=== PATIENT | male | born 1990 | race Caucasian/White ===

== ENCOUNTER 2016-06-22 20:18 | Observation (INO) | payer SELFPAY ==
--- NOTE | ~2016-06-22 | CT2 ---
[facility] A Service of [facility] [place] RADIOLOGY TEXT RESULTS PATIENT: GEORGE RASHID JR LOCATION: [facility] 46- : [birth year] UNIT #: [id number] AGE: [address]: Karan Srivastava MD SEX: M ORDER DR: [id number] [place] [id number] [facility]. [place], [place] [address] [id number] MR#: [id number] Acc #: [id number] NAME: GEORGE RASHID JR : 1990 SEX: M STUDY DATE/TIME: 06/22/2016 20:58 UNIT: [facility] ROOM: [facility] STUDY DESCRIPTION: CT Abd and Pelv W Cont Attending Physician: Karan Srivastava M.D. Ordering Physician: Laura Plummer M.D. Primary Care Physician: Erik Mascorro M.D. MEDICAL IMAGING REPORT This report is preliminary unless electronic signature is present EXAM CT abdomen and pelvis with contrast, 06/22/2016. HISTORY Elevated white blood cell count, left flank pain for 2 weeks, history of kidney stones. COMPARISON 04/12/2009 TECHNIQUE Patient was given 100 mL of Isovue 370. Axial 5-mm images were obtained through the abdomen and pelvis. This CT exam was performed with one or more of the following radiation dose reduction techniques: automatic exposure control, adjustment of mA and/or kV according to patient size, and iterative reconstruction. FINDINGS Lung bases are clear. The liver, gallbladder, spleen, pancreas, adrenal glands, and right kidney are normal. The left kidney is abnormal, showing slight diffuse swelling and minimal perinephric edema. This appears to be due to hydronephrosis from a proximal ureteral stone, measuring 4.5 mm in diameter. The aorta is normal in size, and there is no adenopathy. The bowel is normal. The bladder and prostate gland are normal. The bones are unremarkable. IMPRESSION 1. 4.5-mm proximal left ureteral stone causing mild left hydronephrosis. 2. Otherwise, normal. [facility] A Service [facility] RADIOLOGY TEXT RESULTS PATIENT: GEORGE RASHID JR LOCATION: [place] [address] : [birth year] UNIT #: [id number] AGE: [address]: Karan Srivastava MD SEX: M ORDER DR: Dictated by... Bryson Amaral M.D. THIS IS AN ELECTRONICALLY VERIFIED REPORT Bryson Amaral M.D. at 06/23/2016 2:00 PM Shwetha TD: 06/23/2016 09:46 JOB #: [id number] MEDICAL IMAGING REPORT Page 1 of 1 COPY
--- NOTE | ~2016-06-22 | DS ---
Unit #: [id number] #: [id number] Patient: GEORGE RASHID JR [id number] [place], [place] [address] [id number] MR#: [id number] NAME: GEORGE RASHID JR ROOM: 46 Age: 25 Sex: M Admission Date: 06/22/2016 : 1990 Discharge Date: 06/23/2016 Attending Physician: Karan Srivastava M.D. Primary Care Physician: Erik Mascorro M.D. DISCHARGE SUMMARY SHORT STAY SUMMARY PRIMARY DIAGNOSIS Left renal colic. DISPOSITION Home. FOLLOWUP Keep scheduled follow up with Dr. Mascorro. DISCHARGE MEDICATIONS Same as admission plus Percocet 5/325 #30 one to two every four to six hours as needed. HISTORY This 25-year-old man has had intermittent left flank pain for two weeks. He has a 4.5 mm stone at the left ureteropelvic junction and has elected to follow this expectantly with medical therapy. Thus, he has been taking tamsulosin in addition to Lortab 5/325. He has generally done well but presented with uncontrolled pain to the emergency department last evening. CT scan was repeated showing the stone at the UPJ measuring by my estimation on review of the films 4.5 x 5 mm with mild hydronephrosis and delay as there was contrast given. He has had only one dose of Dilaudid, however, and he has had no pain on the floor overnight. Not knowing his history, I spoke to him by telephone this morning to plan whether a procedure was indicated or not and he felt confident not to request surgery. On seeing him at bedside, he clearly wishes to go home. He has remained pain free since phone call this morning. He has no symptoms at this time. PHYSICAL EXAMINATION VITAL SIGNS: On examination, he is afebrile with stable vital signs. HEENT: Unremarkable. GENERAL: Healthy-appearing man, normal affect and mood. LUNGS: Clear. CARDIAC: Rate and rhythm regular. ABDOMEN: Soft, nontender. No CVA tenderness. EXTREMITIES: No edema. GENITALIA: Deferred. DIAGNOSTIC STUDIES LABORATORY: Laboratories include a BUN of 15, creatinine 1.2. WBC 15.6. Unit #: [id number] #: [id number] Patient: GEORGE RASHID JR Urine has red cells but no white cells or bacteria. IMAGING: X-ray, CT as above. IMPRESSION A medium-sized upper tract stone, currently asymptomatic. Options having been reviewed. Patient elects discharge. PLAN Will discharge home and keep scheduled follow up with Dr. Mascorro. Have prescribed Percocet as it may be stronger than the Lortab if his pain returns and possibly facilitate passage of the stone. Dictated by... Karan Srivastava M.D. NAHOMI/lala TD: 06/24/2016 09:43 JOB #: [id number] DISCHARGE SUMMARY Page 1 of 1 X Karan Srivastava MD X DISCHARGE SUMMARY
[2016-06-22 19:30] LABS: URINE SOURCE CLEAN CATCH
[2016-06-22 19:35] LABS: URINE APPEARANCE CLEAR; URINE BILIRUBIN NEG (NEG); URINE BLOOD 3+ (NEG); URINE COLOR YELLOW; URINE GLUCOSE NEG (NEG); URINE KETONE TRACE (NEG); URINE LEUKOCYTE ESTERASE NEG (NEG); URINE NITRATE NEG (NEG); URINE PH 5.5 (5-8); URINE PROTEIN TRACE (NEG); URINE SPECIFIC GRAVITY 1.028 (1.003-1.035); URINE UROBILINOGEN 0.2 MG/DL (NEG)
[2016-06-22 19:38] LABS: CULTURE INDICATED? NO; URBCS1 AUWI 50-100 /[HPF] (0-2); URINE BACTERIA AUWI NEG (NEGATIVE); URINE SQUAMOUS EPITHELIAL CELL NONE SEEN /[HPF]; UWBCS1 AUWI 0-2 (0-5)
[2016-06-22 20:08] LABS: BASOPHIL% 0.2 % (0-2.5); EOSINOPHIL% 0.1 % (0.0-7.0); HEMATOCRIT 46.1 % (38.0-50.0); HEMOGLOBIN 15.3 gm/dL (13.0-16.0); LYMPHOCYTE# 0.9 X10e3 (1.0-3.5); LYMPHOCYTE% 5.5 % (17.0-45.0); MEAN CELL VOLUME 85.5 FL (83-96); MEAN CORPUSCULAR HEMOGLOBIN 28.4 PG (28-34); MEAN CORPUSCULAR HGB CONC 33.2 g/dL (30-36); MEAN PLATELET VOLUME 7.7 FL (6.5-11.5); MONOCYTE% 6.5 % (3.0-12.0); NEUTROPHIL# 13.7 X10e3 (1.5-7.1); NEUTROPHIL% 87.7 % (40-75); PLATELET COUNT 248 X10e3 (140-420); RED CELL DISTRIBUTION WIDTH 12.8 % (11.0-15.5); WHITE BLOOD COUNT 15.6 X10e3 (4.0-10.5)
[~2016-06-22 20:18] MED LIST: FLOMAX0.4 MG PO; PHENERGAN PO; TYLOX 5/500 CAP1 CAP PO; [UNRECOGNIZED DRUG - OTHER]
[2016-06-22 20:23] LABS: DIFF IND YES
[2016-06-22 20:27] LABS: PLATELET ESTIMATE NORMAL (NORMAL)
[2016-06-22 20:30] LABS: ALBUMIN SERUM 5.4 g/dL (3.5-5.0); BILIRUBIN, DIRECT 0.1 mg/dL (0.0-0.2); BILIRUBIN,INDIRECT 0.4 mg/dL (0.0-0.9); BILIRUBIN,TOTAL 0.5 mg/dL (0.2-2.0); BUN/CREATININE RATIO 12.5; CALCIUM SERUM 9.6 mg/dL (8.4-10.2); CREATININE SERUM 1.2 mg/dL (0.6-1.4); POTASSIUM 4.2 mmol/L (3.5-5.1); PROTEIN TOTAL SERUM 8.2 g/dL (6.0-8.3)
[2016-06-22] MEDS ORDERED: LORCET 5-325 M1 EACH PO (23:02)
[2016-06-22] MEDS ORDERED: LORTAB 5-325 M1 EACH PO (23:03)
[2016-06-23] MEDS ORDERED: PERCOCET5/325 PO (13:03)
== END 2016-06-23 13:40 | disposition home or self-care (01) | DRG 694 ==
LOC: CED 20:18 → CEDOF 23:06 → C4C 06-23 00:25
PROVIDERS: Emergency Medicine
DX: N13.2 Hydronephrosis with renal and ureteral calculous obstruction (principal)
CPT/HCPCS: 36415; 74177; 80048; 80076; 81003; 85025; 96361; 96374; 96375; 96376; 99285; G0378; J1170; Q9967